=== PATIENT | male | born 1970 | race Caucasian/White ===

== ENCOUNTER 2020-08-05 04:22 | Emergency (ER) | payer SELFPAY ==
[2020-08-05] MEDS ORDERED: Lisinopril 10 MG Tab PO ONE (04:33)
--- NOTE | 2020-08-05 04:42 | EDM.PDOC ---
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 Patient's blood pressure was 180/116. Patient reports that he has been diagnosed with hypertension in the past but has not been taking his lisinopril. 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 Patient reports that he was clean for quite some time however recently started using methamphetamines again. Patient reports he also uses marijuana. Patient denies any cocaine or heroin use. Patient denies significant alcohol use. Patient denies any other concerning symptoms. Patient denies any fevers, shakes, chills, nausea, vomiting, diarrhea, chest pain, shortness of breath. Patient denies any blurred or double vision. Patient denies any severe headaches. Review of systems: As per history of present illness and below otherwise all systems reviewed and negative. Past medical history: As per history of present illness and as reviewed below otherwise noncontributory. Surgical history: As per history of present illness and as reviewed below otherwise noncontributory. Social history: No reported history of drug or alcohol abuse. Family history: As per history of present illness and as reviewed below otherwise noncontributory. Physical exam: Constitutional: Patient is oriented to person, place, and time. Appears well- developed and well-nourished. No distress. HEENT: Moist mucous membranes Head: Normocephalic and atraumatic Eyes: Right eye exhibits no discharge. Left eye exhibits no discharge. No scleral icterus Neck: Normal range of motion. No tracheal deviation present. Cardiovascular: Normal rate and regular rhythm. Pulmonary: Effort normal, no respiratory distress. No wheezing rales or rhonchi Abdominal: No distention Musculoskeletal: Normal range of motion. No lower extremity edema Neurologic: Alert and oriented to person, place and time. Skin: [place], warm and dry. Psychiatric: Normal mood and affect. Behavior is normal. Judgment and thought content normal. Nursing note and vital signs have been reviewed BP equals 160/112 Therapeutics: Lisinopril 10 mg p.o. x1 Assessment and plan: This is a 50-year-old gentleman who presents ER today for medical clearance for law enforcement. Patient does have a history significant for hypertension has been noncompliant with his medications. Patient also does have a history significant for methamphetamine use recently. Patient's elevated blood pressure is likely multifactorial including noncompliance with his lisinopril as well as drug use and anxiety from being recently arrested. Patient will be started on his lisinopril 10 mg p.o. daily for 1 week and will be instructed to follow-up with his primary care doctor for reevaluation regarding continue the medications and follow his blood pressure. Definitive disposition and diagnosis as appropriate pending reevaluation and review of above. - Related Data Allergies Allergy/AdvReac Type Severity Reaction Status Date / Time No Known Allergies Allergy Verified 08/05/20 04:34 Home Meds: Home Meds lisinopriL [Lisinopril] 10 mg PO DAILY 08/05/20 [History] lisinopriL [Lisinopril] 10 mg PO DAILY #7 tablet 08/05/20 [Rx] ED ROS GENERAL - Review of Systems Review Of Systems: See Below ED EXAM, GENERAL - Physical Exam Exam: See Below Course - Vital Signs Last Recorded V/S: Last Vital Signs Temp 98.1 F 08/05/20 04:30 Pulse 85 08/05/20 05:00 Resp 18 08/05/20 05:00 BP 167/98 H 08/05/20 05:00 Pulse Ox 96 08/05/20 05:00 - Orders/Labs/Meds Meds: Medications Discontinued Medications Generic Name Dose Route Start Last Admin Trade Name [place] PRN Reason Stop Dose Admin Lisinopril 10 mg 08/05/20 04:33 08/05/20 04:39 Prinivil PO 08/05/20 04:34 10 mg ONETIME ONE Administration Departure - Departure Time of Disposition: 04:38 Disposition: Home, Self-Care 01 Clinical Impression: Hypertension screening, Hypertension, Medical clearance for incarceration - Discharge Information Prescriptions: lisinopriL [Lisinopril] 10 mg PO DAILY #7 tablet Instructions: Hypertension, Adult, [id number], Medical Screening Exam Referrals: PCP,None [Primary Care Provider] - Forms: ED Department Discharge Additional Instructions: Your seen and evaluated in the ER today for medical clearance secondary to an elevated blood pressure. Hypertension is likely multifactorial with components of drug use, anxiety, and genetic factors in play. You need to do what she can in order to maintain a healthy blood pressure. You must be compliant with your antihypertensive medications in order to minimize the risks of stroke, heart attacks, kidney failure, blindness, sexual impotence. You will be started on lisinopril 10 mg daily here in the ER. Please make an appointment to see a family physician within 1 week for reevaluation of your blood pressure and adjustment of your antihypertensive medications as needed. The following information is given to patients seen in the emergency department who are being discharged to home. This information is to outline your options for follow-up care. We provide all patients seen in our emergency department with a follow-up referral. The need for follow-up, as well as the timing and circumstances, are variable depending upon the specifics of your emergency department visit. If you don't have a primary care physician on staff, we will provide you with a referral. We always advise you to contact your personal physician following an emergency department visit to inform them of the circumstance of the visit and for follow-up with them and/or the need for any referrals to a consulting specialist. The emergency department will also refer you to a specialist when appropriate. This referral assures that you have the opportunity for follow-up care with a specialist. All of these measure are taken in an effort to provide you with optimal care, which includes your follow-up. Under all circumstances we always encourage you to contact your private physician who remains a resource for coordinating your care. When calling for follow-up care, please make the office aware that this follow-up is from your recent emergency room visit. If for any reason you are refused follow-up, please contact the [facility] Emergency Department at and asked to speak to the emergency department charge nurse. [facility] [address] [place] [id number] [facility] [address] [place] [id number]
== END 2020-08-05 05:00 | disposition home or self-care (01) ==
LOC: MW.ED 04:22
DX: I10 Essential (primary) hypertension (principal); Z79.899 Other long term (current) drug therapy
CPT/HCPCS: 99283; A9270; 99282